=== PATIENT | female | born 1950 | race Caucasian/White ===

== ENCOUNTER 2019-09-30 08:19 | Inpatient (IN) ==
[2019-09-30] MEDS: HYDROmorphone 2 MG/ML VIAL IV PRN ×4 (09:17→19:26)
[2019-09-30] MEDS ORDERED: LACTATED RINGERS 1,000 ML IV ONE (09:19)
--- NOTE | 2019-09-30 09:38 | Emergency Department Note ---
General Adult HPI - General Chief complaint: Rib Pain Stated complaint: Right sided pain Time Seen by Provider: 09/30/19 09:15 Source: EMS Mode of arrival: EMS Limitations: no limitations - History of Present Illness HPI Narrative: This pleasant 68-year-old female comes emergency room with persisting and increasingly severe pain that has been located first on the left side of her chest and now on her right side. She has some radiation into the abdomen. Pain is sharp and stabbing in nature. She has been seen at [facility] in [place] at least 3 times and at least once in primary care, Dr. Rojo's office. Pain makes it hard to breathe. It hurts to take a deep breath. She did not have a fall. She has a history of vulvar cancer with 2 surgical removals. It is not difficult for her to swallow. She has been dr inking a lot of water and feels quite thirsty which is new. There is no pain with tightening up her abdomen. She has been on hydrocodone 5/325 1 pill 3 or 4 times per day but it has not been that helpful. She has a history of some chronic low back pain. REVIEW OF SYSTEMS: Denies fevers chills or sweats No sore throat or runny nose No palpitations No cough or shortness of breath No actual abdominal pain. Is nauseated she says from the pain but no vomiting. Has a past history of diarrhea but this is stabilized. No constipation. Has a little bit of new dysuria and frequency and urgency with now having hesitancy "almost all the time". No current new back pain No rashes Generalized weakness and lightheaded/dizzy Some chronic anxiety but no depression Feels fatigued. - Related Data Home Medications Medication Instructions Recorded Confirmed Gabapentin [Neurontin] 300 mg PO DAILY PRN 10/06/18 09/30/19 Glimepiride [Amaryl] 4 mg PO BID 10/06/18 10/06/18 LORazepam [Ativan] 0.5 mg PO TID PRN 10/06/18 10/06/18 Levothyroxine Sodium [Levoxyl] 150 mcg PO DAILY 10/06/18 10/06/18 Losartan Potassium 25 mg PO DAILY 10/06/18 10/06/18 Oxybutynin Chloride [Oxybutynin 10 mg PO DAILY 10/06/18 10/06/18 Chloride ER] Promethazine/Dextromethorphan 5 ml PO PRN PRN 10/06/18 10/06/18 [Promethazine-Dm Solution] metFORMIN HCL [Metformin HCl] 500 mg PO DAILY 10/06/18 10/06/18 Allergies Allergy/AdvReac Type Severity Reaction Status Date / Time ibuprofen [From MOTRIN] Allergy Severe ANAPHYLAXIS Verified 09/30/19 08:20 losartan Allergy Severe Other Verified 09/30/19 08:24 oxycodone [OXYCODONE] Allergy Severe STOPS Verified 09/30/19 08:20 BREATHING Past Medical History - Past Medical History [facility] Narrative: Hx of Vulvar carcinoma (s/p excision/surgery X2) Medical History (Last Updated 09/30/19 @ 09:38 by Saturnino Jarrett DO) Anemia in CKD (chronic kidney disease) (Chronic) Hypothyroidism, acquired (Chronic) Chronic renal failure, stage 3 (moderate) (Chronic) Diabetes mellitus, type 2 (Chronic) Morbid obesity (Chronic) Hyperkalemia (Resolved) Renal failure (Resolved) Medical history: Reports: arthritis, DM Surgical history ED: Reports: other (Vulvar surgery, DIONNE has ovaries) - Social History smoking status: Never smoker Alcohol use: Reports: None Drug use: Reports: none Physical Exam Limitations: no limitations General appearance: alert, grimacing (Intermittently at times.), in no apparent distress, nontoxic, other (Mild to moderate fatigued appearance.) Head: atraumatic, normocephalic Eye: Present: EOMI ENT: Present: mucous membranes dry Neck: Present: trachea midline. Absent: lymphadenopathy, thyromegaly Chest: Present: symmetric chest wall rise, other (Seems to be very tender to any palpation in the lateral right lower chest wall area.) Respiratory: Present: normal lung sounds bilaterally. Absent: respiratory distress, wheezes, stridor, accessory muscle use, prolonged expiratory phase Cardiovascular: Present: regular rate, normal rhythm. Absent: systolic murmur, diastolic murmur Abdominal: Present: soft. Absent: distention, tenderness, guarding, rebound, rigidity, organomegaly, mass Extremities: Absent: pedal edema, pretibial edema, calf tenderness Back: Absent: CVA tenderness (R), CVA tenderness (L) Neurological: Present: alert, oriented X3, CN II-XII intact Psychiatric: Present: serious, polite, pleasant. Absent: depressed, agitated, anxious, tearful, poor eye contact Skin: Present: warm, dry Course Vital Signs Temperature 98.0 F 09/30/19 08:20 Pulse Rate 90 09/30/19 08:20 Respiratory Rate 20 09/30/19 08:20 Blood Pressure 173/74 09/30/19 08:20 Pulse Oximetry (%) 98 09/30/19 08:20 Temperature 98.0 F 09/30/19 08:20 Pulse Rate 87 09/30/19 10:31 Respiratory Rate 9 L 09/30/19 10:31 Blood Pressure 177/77 09/30/19 10:31 Pulse Oximetry (%) 94 09/30/19 10:31 Medical Decision Making - MDM Narrative Medical decision making narrative: Chest pain appears to be related to metastatic lesions. Chart review of information from [facility] reveals multiple lytic lesions of the ribs. She also has a left lower lobe pneumonia and pleural effusion that is small. The abdominal CT/pelvic CT done yesterday also confirms lytic lesions and probable pathologic fractures in some of these ribs. 10:05 AM - I spoke with family, James, his son and [id number], and fill them in on circumstances. They report that patient's , Aaron, is in very poor health of his own and that he is unable to help take care of her at home and that she should not be allowed to go home. She needs a facility that will help her. [id number] suggest that they want to do everything they can to try to kill the cancer make it better. I pointed out that there may be limited options. At some point there may even be a consideration of hospice but that it is too early to consider these things. Pain control and the biopsy is needed at this point most likely. 10:40 AM - I spoke with Dr. Shukla, oncologist, [facility], and he points out that it is true that we need to get a more firm diagnosis. Multiple myeloma is still in the differential. A CT-guided biopsy is needed and pain control needed. He asked about lymph nodes. He has to have LDH, light chains, SPEP and UPEP ordered. 12:03 PM - I spoke with Dr. Caldwell, radiologist, who points out that there is a 1.1 mm lesion in the left ilium that is biopsy able and would be able to do so. 1:00 PM approximately - after speaking with nursing home social worker and hospitalist, Dr. Yoon, patient does qualify for inpatient treatment due to new metastatic disease and failed outpatient pain control. This will allow doing the biopsy, assist in pain control, and prepare for a place of rehabilitation or treatment for her longer term that is compatible with her family and social circumstances. Dr. Yoon, hospitalist, has accepted her for inpatient. - Lab Data Result diagrams: 09/30/19 09:00 09/30/19 09:00 Lab Results 09/30/19 09/30/19 09/30/19 Range/Units 09:00 09:00 09:00 WBC 10.1 (4.50-11.00) K/mcL RBC 3.14 L (3.59-5.38) M/mcL Hgb 9.8 L (11.2-15.7) g/dL Hct 29.5 L (34.1-44.9) % MCV 93.9 (80.0-100.0) fL MCH 31.2 (26.0-34.0) pg MCHC 33.2 (31.0-36.0) g/dL RDW 12.1 (11.5-14.5) % Plt Count 338 (140-440) K/mcL MPV 10.8 H (7.4-10.4) fL Gran % 85.6 H (38.0-78.0) % Lymph % (Auto) 6.1 L (15.5-49.0) % Stanton % (Auto) 8.3 (1.0-12.0) % Eos % (Auto) 0 (0.0-7.0) % Baso % (Auto) 0 (0.0-2.0) % Gran # 8.61 H (1.80-8.00) K/mcL Lymph # (Auto) 0.61 L (1.50-4.80) K/mcL Stanton # (Auto) 0.83 (0.10-0.90) K/mcL Eos # (Auto) 0 (0.00-0.70) K/mcL Baso # (Auto) 0 (0.00-0.30) K/mcL ESR 118 H (0-20) mm/hr D-Dimer 4.41 H (0.00-0.40) ug/ml Sodium 133 (133-145) mmol/L Potassium 4.2 (3.3-5.1) mmol/L Chloride 99 (96-108) mmol/L Carbon Dioxide 20 L (22-30) mmol/L Anion Gap 14.0 (8-16) BUN 27 H (8-23) mg/dl Creatinine 1.4 H (0.6-1.1) mg/dl GFR Calculation 38 Glucose 347 H (70-105) mg/dL Calcium 9.1 (8.6-10.4) mg/dl Total Bilirubin 0.2 (0.0-1.0) mg/dL AST 13 (0-37) U/l ALT 9 (0-40) U/l Alkaline Phosphatase 117 (39-117) U/L Troponin T (0-0.03) ng/ml Total Protein 7.0 (5.9-8.4) gm/dL Albumin 3.4 (3.2-5.2) gm/dL Globulin 3.6 (2.2-3.7) gm/dL Albumin/Globulin Ratio 0.9 L (1.0-2.3) 09/30/19 Range/Units 09:00 WBC (4.50-11.00) K/mcL RBC (3.59-5.38) M/mcL Hgb (11.2-15.7) g/dL Hct (34.1-44.9) % MCV (80.0-100.0) fL MCH (26.0-34.0) pg MCHC (31.0-36.0) g/dL RDW (11.5-14.5) % Plt Count (140-440) K/mcL MPV (7.4-10.4) fL Gran % (38.0-78.0) % Lymph % (Auto) (15.5-49.0) % Stanton % (Auto) (1.0-12.0) % Eos % (Auto) (0.0-7.0) % Baso % (Auto) (0.0-2.0) % Gran # (1.80-8.00) K/mcL Lymph # (Auto) (1.50-4.80) K/mcL Stanton # (Auto) (0.10-0.90) K/mcL Eos # (Auto) (0.00-0.70) K/mcL Baso # (Auto) (0.00-0.30) K/mcL ESR (0-20) mm/hr D-Dimer (0.00-0.40) ug/ml Sodium (133-145) mmol/L Potassium (3.3-5.1) mmol/L Chloride (96-108) mmol/L Carbon Dioxide (22-30) mmol/L Anion Gap (8-16) BUN (8-23) mg/dl Creatinine (0.6-1.1) mg/dl GFR Calculation Glucose (70-105) mg/dL Calcium (8.6-10.4) mg/dl Total Bilirubin (0.0-1.0) mg/dL AST (0-37) U/l ALT (0-40) U/l Alkaline Phosphatase (39-117) U/L Troponin T < 0.01 (0-0.03) ng/ml Total Protein (5.9-8.4) gm/dL Albumin (3.2-5.2) gm/dL Globulin (2.2-3.7) gm/dL Albumin/Globulin Ratio (1.0-2.3) Disposition Pt seen by PRODUCTION CONTROL COORDINATING CLERK/PA only: No Clinical Impression: Bone metastases, History of cancer of vulva, Chest wall pain, Failure of outpatient treatment Disposition: Xfer As Inpt ([facility]) Condition: Serious
[2019-09-30 09:48] LABS: ALT/SGPT 9 U/l (0-40); AST/SGOT 13 U/l (0-37); Albumin 3.4 gm/dL (3.2-5.2); Albumin/Globulin Ratio 0.9 (1.0-2.3); Alkaline Phosphatase 117 U/L (39-117); Bilirubin,Total 0.2 mg/dL (0.0-1.0); Calcium 9.1 mg/dl (8.6-10.4); Carbon Dioxide 20 mmol/L (22-30); Chloride 99 mmol/L (96-108); Globulin 3.6 gm/dL (2.2-3.7); Glomerular Filtration Rate 38; Glucose 347 mg/dL (70-105)
[2019-09-30 09:53] LABS: Blood Urea Nitrogen 27 mg/dl (8-23)
[2019-09-30] MEDS ORDERED: HYDROmorphone 2 MG/ML VIAL IV PRN (09:59)
[2019-09-30] MEDS ORDERED: ONDANSETRON 4 MG/2 ML VIAL IV ONE (09:59)
[2019-09-30 10:09] LABS: Basophils # (Auto) 0 K/mcL (0.00-0.30); Basophils % (Auto) 0 % (0.0-2.0); Eosinophils # (Auto) 0 K/mcL (0.00-0.70); Eosinophils % (Auto) 0 % (0.0-7.0); Granulocytes % (Auto) 85.6 % (38.0-78.0); Hematocrit 29.5 % (34.1-44.9); Hemoglobin 9.8 g/dL (11.2-15.7); Lymphocytes # (Auto) 0.61 K/mcL (1.50-4.80); Lymphocytes % (Auto) 6.1 % (15.5-49.0); Mean Cell Volume 93.9 fL (80.0-100.0); Mean Corpuscular HGB Conc 33.2 g/dL (31.0-36.0); Mean Platelet Volume 10.8 fL (7.4-10.4); Monocytes # (Auto) 0.83 K/mcL (0.10-0.90); Monocytes % (Auto) 8.3 % (1.0-12.0); Platelet Count 338 K/mcL (140-440); RBC 3.14 M/mcL (3.59-5.38); Red Cell Distribution Width 12.1 % (11.5-14.5); WBC 10.1 K/mcL (4.50-11.00)
[2019-09-30 10:23] LABS: Erythrocyte Sedimentation Rate 118 mm/hr (0-20)
--- NOTE | 2019-09-30 10:58 | XRay Report ---
CLINICAL INFORMATION: Right sided rib pain COMPARISON: 09/27/2019 FINDINGS: Mild cardiomegaly is unchanged. Mediastinum and pulmonary vessels are normal. Moderate patchy left basilar infiltrate and small left pleural effusion - slight worsening IMPRESSION: Moderate patchy left basilar infiltrate and small left pleural effusion - slight worsening. Mild cardiomegaly stable Interpreted and Authenticated by: Joe Caldwell 09/30/19
[2019-09-30 13:33] LABS: Total Protein PEP 6.4 gm/dL (5.9-8.4)
--- NOTE | 2019-09-30 13:36 | Internal Med History&Physical ---
Medical - H&P: HPI Patient information: Note initiated : 09/30/19 at 1:29 pm Service Date, if different from initiated Date: [] Patient: Kiana Benitez a 68 y/o F admitted on for Right Sided Pain. Chief Complaint: [] Chief complaint: Chest pain and weakness History of present illness: Ms. Benitez is a 68 year old F with a history of vulvar cancer had 2 recent excision 3 months ago and the last one 3 weeks ago. Patient started experiencing pleuritic left-sided chest pain over the last 4 weeks and has had multiple ER visits and was diagnosed with pleurisy. However her symptoms have continued to get worse making it more difficult to breathe and what was initially a 4 out of 10 is now become 5-8 out of 10 despite being on medications. There is no associated radiation but every attempt to take a deep breath, cough or move makes it worse. She was also seen at PCP office. She recently had a CT which showed multiple lytic lesions involving the ribs. A final read of the CT is currently being obtained. Patient was evaluated today in the ER initial work-up was consistent with left basilar infiltrate along with left pleural effusion which has been worsening from the prior imaging. Also pain is intractable and clearly have failed outpatient attempts at treatment. ER physician discussed case with cancer specialist Dr. Tadeo who recommended obtaining biopsy and follow-up as outpatient After initial evaluation and treatment hospitalist service was consulted for ad mission At the time of evaluation patient is fairly anxious. She is unable to talk in full sentences due to pain. She is under the effect of Dilaudid and frequently dozes off. She however was able to hold a conversation and provide review of systems. She denies recent fall. She lives with her and her son in [place]. She denies weight loss, bloody stool, vaginal bleeding, swallowing difficulty. Based on information I have at this point time I discussed the plan of admission for intensive pain management for metastatic lytic lesion along with obtaining a biopsy for further evaluation of tumor and blood work. We will initiate treatment for pneumonia seen on imaging. Review of system 10 point review system was performed and is negative except for ones discussed above Medical - H&P: PMH Medical history: Anemia in CKD (chronic kidney disease) (Chronic) Hypothyroidism, acquired (Chronic) Chronic renal failure, stage 3 (moderate) (Chronic) Diabetes mellitus, type 2 (Chronic) Morbid obesity (Chronic) Hyperkalemia (Resolved) Renal failure (Resolved) Medical history: Reports: arthritis, DM Surgical history ED: Reports: other (Vulvar surgery, DIONNE has ovaries) - Social History smoking status: Never smoker Alcohol use: Reports: None Drug use: Reports: none Medical - H&P: Meds Home Medications Medication Instructions Recorded Confirmed Type Gabapentin [Neurontin] 300 mg PO DAILY PRN 10/06/18 09/30/19 History LORazepam [Ativan] 0.5 mg PO Q6HP PRN 10/06/18 09/30/19 History Levothyroxine Sodium [Levoxyl] 175 mcg PO DAILY 10/06/18 09/30/19 History Carvedilol [Coreg] 6.25 mg PO BIDCC 09/30/19 09/30/19 History Cyanocobalamin [Vitamin B12] 1,000 mcg IM MONTHLY 09/30/19 09/30/19 History Ferrous Gluconate [Fergon] 324 mg PO DAILY 09/30/19 09/30/19 History HYDROcodone/ACETAMINOPHEN [Cougar 1 each PO QID PRN 09/30/19 09/30/19 History 10-325 Tablet] Insulin Glargine, Human [Lantus] 25 unit SQ HS 09/30/19 09/30/19 History Insulin Glargine, Human [Lantus] 30 unit SQ DAILY 09/30/19 09/30/19 History Oxybutynin Chloride 5 mg PO BID 09/30/19 09/30/19 History Zolpidem [Ambien] 5 - 10 mg PO HSP PRN 09/30/19 09/30/19 History Allergies Allergy/AdvReac Type Severity Reaction Status Date / Time ibuprofen [From MOTRIN] Allergy Severe ANAPHYLAXIS Verified 09/30/19 08:20 losartan Allergy Severe Other Verified 09/30/19 08:24 oxycodone [OXYCODONE] Allergy Severe STOPS Verified 09/30/19 08:20 BREATHING Medical - H&P: Exam - Constitutional Vitals: Temp Pulse Resp BP Pulse Ox 98.0 F 87 9 L 177/77 94 09/30/19 08:20 09/30/19 10:31 09/30/19 10:31 09/30/19 10:31 09/30/19 10:31 General appearance: severe distress (From rib pain) Exam: Alert but anxious Head normocephalic Eye movement symmetrical Oral cavity dry No ear nose discharge Neck no lymphadenopathy S1-S2 tachycardia Diminished breath sounds bases, absent breath sounds left base Abdomen soft nontender Lower extremity no cyanosis clubbing, minimal lymphedema Skin no suspicious lesion Psych anxious but cooperative Neuro nonfocal Medical - H&P: Reslt - Labs CBC & Chem 7: 10/01/19 04:53 10/01/19 04:52 Labs: Short CBC 09/30/19 Range/Units 09:00 WBC 10.1 (4.50-11.00) K/mcL Hgb 9.8 L (11.2-15.7) g/dL Hct 29.5 L (34.1-44.9) % Plt Count 338 (140-440) K/mcL BMP 09/30/19 09:00 Sodium 133 Potassium 4.2 Chloride 99 Carbon Dioxide 20 L BUN 27 H Creatinine 1.4 H Glucose 347 H Calcium 9.1 Cardiac Enzymes 09/30/19 Range/Units 09:00 Troponin T < 0.01 (0-0.03) ng/ml Liver Function 09/30/19 Range/Units 09:00 Total Bilirubin 0.2 (0.0-1.0) mg/dL AST 13 (0-37) U/l ALT 9 (0-40) U/l Alkaline Phosphatase 117 (39-117) U/L Albumin 3.4 (3.2-5.2) gm/dL Medical - H&P: A/P (1) 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 * Intractable bone pain secondary to metastatic cancer-start aggressive pain management. Consider bisphosphonate/steroids if inadequate response to narcotic/acetaminophen and local patches * Left lower lobe pneumonia-initiate antibiotic coverage. Continue aggressive pulmonary toilet * Anemia of chronic kidney disease, hemoglobin stable at 9.8 * History of hypothyroidism continue thyroxine * Morbid obesity continue dietary intervention/directed therapies. * DM type II continue prandial insulin/CC diet * History of CKD stage IIIb-monitor renal function * Neuropathy continue gabapentin * Hypertension continue losartan * Anxiety disorder on home dose lorazepam * Full code * Prophylaxis heparin Plan * Inpatient admission * Antibiotic coverage * Multimodal pain management * Arrange rib biopsy * Pre-existing medical condition management on home medications * Discharge planning likely SNF * PT OT/nutrition support
[2019-09-30] MEDS ORDERED: traMADol 50 MG TABLET PO PRN (14:32)
[2019-09-30] MEDS ORDERED: POTASSIUM CHLORIDE 20 MEQ PACKET PO PRN (14:32)
[2019-09-30] MEDS ORDERED: DEXTROSE 50% 50 ML VIAL IV PRN (14:32)
[2019-09-30] MEDS ORDERED: DEXTROSE 31 GM ORAL.SUSP PO PRN (14:32)
[2019-09-30] MEDS ORDERED: MAGNESIUM HYDROXIDE 30 ML ORAL.SUSP PO PRN (14:32)
[2019-09-30] MEDS ORDERED: ONDANSETRON 4 MG ODT TABLET SL PRN (14:32)
[2019-09-30] MEDS ORDERED: ONDANSETRON 4 MG/2 ML VIAL IV PRN (14:32)
[2019-09-30] MEDS ORDERED: MAGNESIUM SULFATE 2 GM/50 ML BAG IV PRN (14:32)
[2019-09-30] MEDS ORDERED: BISACODYL 10 MG SUPP.RECT PR PRN (14:32)
[2019-09-30] MEDS ORDERED: ACETAMINOPHEN 325 MG TABLET PO PRN (14:32)
[2019-09-30] MEDS ORDERED: ACETAMINOPHEN 650 MG/65 ML BOTTLE IV PRN (14:32)
[2019-09-30] MEDS: 0.9 % SODIUM CHLORIDE 10 ML SYRINGE IV SCH ×2 (15:14→21:30)
[2019-09-30] MEDS: 0.9 % SODIUM CHLORIDE 1,000 ML IV SCH (15:14)
[2019-09-30] MEDS: cefTRIAXone 2 GM in DEXTROSE 5% IN WATER 50 ML IV SCH (15:33)
[2019-09-30] MEDS: LEVOFLOXACIN 750 MG/150 ML BAG IV SCH (16:07)
[2019-09-30] MEDS: HYDROcodone/APAP 5/325MG TABLET PO PRN ×2 (16:09→21:19)
[2019-09-30] MEDS ORDERED: LORazepam 0.5 MG TABLET PO PRN (16:22)
[2019-09-30] MEDS ORDERED: HYDROcodone/APAP 10/325MG TABLET PO PRN (16:22)
[2019-09-30] MEDS ORDERED: GABAPENTIN 300 MG CAPSULE PO PRN (16:22)
[2019-09-30] MEDS: CARVEDILOL 6.25 MG TABLET PO SCH (16:52)
[2019-09-30] MEDS: INSULIN LISPRO 1 UNIT/0.01 ML UNIT SQ SCH ×2 (16:52→21:29)
[2019-09-30] MEDS: INSULIN GLARGINE, HUMAN 1 UNIT/0.01 ML SQ SCH (21:19)
[2019-09-30] MEDS: HEPARIN 5,000 UNIT/ML VIAL SQ SCH (21:19)
[2019-09-30] MEDS: SENNOSIDES/DOCUSATE SODIUM 1 TAB TABLET PO SCH (21:20)
[2019-09-30] MEDS: DOCUSATE SODIUM 100 MG CAPSULE PO SCH (21:20)
[2019-09-30] MEDS: OXYBUTYNIN CHLORIDE 5 MG TABLET PO SCH (21:20)
[2019-09-30] MEDS: ZOLPIDEM 5 MG TABLET PO PRN (23:45)
[2019-10-01] MEDS: HYDROmorphone 2 MG/ML VIAL IV PRN ×4 (01:17→19:14)
[2019-10-01] MEDS: 0.9 % SODIUM CHLORIDE 10 ML SYRINGE IV SCH ×3 (04:12→22:58)
[2019-10-01 06:49] LABS: Hematocrit 27.5 % (34.1-44.9); Hemoglobin 8.8 g/dL (11.2-15.7); Mean Cell Volume 95.5 fL (80.0-100.0); Mean Platelet Volume 10.7 fL (7.4-10.4); Platelet Count 337 K/mcL (140-440); RBC 2.88 M/mcL (3.59-5.38); Red Cell Distribution Width 11.9 % (11.5-14.5); WBC 9.2 K/mcL (4.50-11.00)
[2019-10-01 07:14] LABS: ALT/SGPT 8 U/l (0-40); AST/SGOT 9 U/l (0-37); Albumin 2.9 gm/dL (3.2-5.2); Albumin/Globulin Ratio 0.9 (1.0-2.3); Alkaline Phosphatase 96 U/L (39-117); Bilirubin,Direct < 0.2 mg/dL (0.0-0.3); Bilirubin,Total < 0.2 mg/dL (0.0-1.0); Blood Urea Nitrogen 24 mg/dl (8-23); Calcium 8.6 mg/dl (8.6-10.4); Carbon Dioxide 21 mmol/L (22-30); Chloride 100 mmol/L (96-108); Globulin 3.2 gm/dL (2.2-3.7); Glomerular Filtration Rate 35; Glucose 128 mg/dL (70-105); Lactate Dehydrogenase 214 U/L (94-250); Phosphorous 4.5 mg/dL (2.7-4.5); Triglycerides 111 mg/dl (<150); Uric Acid 6.6 mg/dL (2.5-8.0)
[2019-10-01] MEDS ORDERED: PAMIDRONATE 90 MG in 0.9 % SODIUM CHLORIDE 500 ML IV ONE ×2 (08:01→09:00)
[2019-10-01] MEDS ORDERED: DEXAMETHASONE 4 MG/ML VIAL IV ONE (08:02)
[2019-10-01] MEDS ORDERED: CAPSAICIN 0.025% CREAM.TOP 60GM TOPICAL PRN (08:02)
[2019-10-01] MEDS ORDERED: ZOLEDRONIC ACID/WATER 5 MG/100 ML BOTTLE IV ONE (08:04)
[2019-10-01 08:19] LABS: Band Neutrophils % 2 % (0-10); Lymphocytes % 13 % (15-49); Monocytes % (Manual) 9 % (1-12); Platelet Estimate NORMAL (NORMAL); RBC Morphology NORMAL (NORMAL); Segmented Neutrophils % 76 % (38-78)
[2019-10-01] MEDS: fentaNYL 25 MCG PATCH TOPICAL SCH (08:19)
[2019-10-01] MEDS ORDERED: sitaGLIPtin 50 MG TABLET PO SCH (09:00)
[2019-10-01] MEDS ORDERED: CYANOCOBALAMIN 1,000 MCG/ML VIAL IM SCH (09:00)
--- NOTE | 2019-10-01 09:08 | Internal Med Progress Note ---
Medical - PN: Subj Patient information: Note initiated : 10/01/19 at 9:06 am Service Date, if different from initiated Date: [] Patient: Kiana Benitez a 68 y/o F admitted on 09/30/19 for Right Sided Pain. Chief Complaint: [] Interval history: Ms. Benitez is a 68 year old F with a history of vulvar cancer had 2 recent excision 3 months ago and the last one 3 weeks ago. Patient started experiencing pleuritic left-sided chest pain over the last 4 weeks and has had multiple ER visits and was diagnosed with pleurisy. However her symptoms have continued to get worse making it more difficult to breathe and what was initially a 4 out of 10 is now become 5-8 out of 10 despite being on medications. There is no associated radiation but every attempt to take a deep breath, cough or move makes it worse. She was also seen at PCP office. She recently had a CT which showed multiple lytic lesions involving the ribs. A final read of the CT is currently being obtained. Patient was evaluated today in the ER initial work-up was consistent with left basilar infiltrate along with left pleural effusion which has been worsening from the prior imaging. Also pain is intractable and clearly have failed outpatient attempts at treatment. ER physician discussed case with cancer specialist Dr. Tadeo who recommended obtaining biopsy and follow-up as outpatient After initial evaluation and treatment hospitalist service was consulted for admission At the time of evaluation patient is fairly anxious. She is unable to talk in full sentences due to pain. She is under the effect of Dilaudid and frequently dozes off. She however was able to hold a conversation and provide review of systems. She denies recent fall. She lives with her and her son in [place]. She denies weight loss, bloody stool, vaginal bleeding, swallowing difficulty. Based on information I have at this point time I discussed the plan of admission for intensive pain management for metastatic lytic lesion along with obtaining a biopsy for further evaluation of tumor and blood work. We will initiate treatment for pneumonia seen on imaging. 09/30-patient clinically worsening with intractable pain and unable to be c omfortable. Started on fentanyl patch/capsaicin/lidocaine. Start bisphosphonate and 4 mg dexamethasone. High likelihood of hypostatic pneumonia due to significant pain related hypoventilation. Continue antibiotic coverage. Renal function stable currently creatinine 1.5. White count down to 9.2. Hemoglobin 8.8. Repeat chest imaging in 24 hours. - Constitutional Vitals: Vital Signs Temp Pulse Resp BP Pulse Ox 98.5 F 83 20 143/72 95 10/01/19 03:44 10/01/19 03:44 10/01/19 03:44 10/01/19 03:44 10/01/19 03:44 Period Temp Pulse Resp BP Sys/Medina Pulse Ox Last 24 Hr 98 F-98.8 F 80-93 9-28 112-185/57-86 92-100 Intake and Output 09/30/19 10/01/19 10/01/19 21:59 05:59 13:59 Intake Total 185 Output Total 1 2 Balance -1 183 Weight 245 lb 9.6 oz Intake & Output: Intake & Output 09/30/19 10/01/19 10/01/19 21:59 05:59 13:59 Intake Total 185 Output Total 1 2 Balance -1 183 Weight 245 lb 9.6 oz Intake: IV 65 Oral 120 Output: # of times incontinent of urine 1 2 General appearance: severe distress (From rib pain) Exam: Very anxious and in severe distress from pain Head normocephalic oral cavity dry No lymphedema Sluggish breath sounds Medical - PN: Obj Da - Labs CBC & Chem 7: 10/01/19 04:53 10/01/19 04:52 Labs: Abnormal Lab Results 10/01/19 10/01/19 09/30/19 04:53 04:52 09:00 RBC 2.88 L Hgb 8.8 L Hct 27.5 L MPV 10.7 H Gran % Lymph % (Auto) Gran # Lymph # (Auto) Lymphocytes % 13 L ESR D-Dimer Carbon Dioxide 21 L BUN 24 H Creatinine 1.5 H Glucose 128 H Lactate Dehydrogenase 260 H Albumin 2.9 L Albumin/Globulin Ratio 0.9 L 09/30/19 09/30/19 09/30/19 09:00 09:00 09:00 RBC 3.14 L Hgb 9.8 L Hct 29.5 L MPV 10.8 H Gran % 85.6 H Lymph % (Auto) 6.1 L Gran # 8.61 H Lymph # (Auto) 0.61 L Lymphocytes % ESR 118 H D-Dimer 4.41 H Carbon Dioxide 20 L BUN 27 H Creatinine 1.4 H Glucose 347 H Lactate Dehydrogenase Albumin Albumin/Globulin Ratio 0.9 L Meds: Medications Acetaminophen (Tylenol) 650 mg PO Q4-6HP PRN; Protocol PRN Reason: Per Pain Protocol/Fever > 101 Hydrocodone Bitart/Acetaminophen ([place] 5/325mg) 0 tab PO Q4HP PRN; Protocol PRN Reason: Per Pain Protocol Last Admin: 09/30/19 21:19 Dose: 2 tab Documented by: Bisacodyl (Dulcolax) 10 mg [place] Q2-3DAYS PRN PRN Reason: Constipation Calcium Carbonate/Glycine (Calcium Carbonate) 500 mg PO BID [facility] Capsaicin (Zostrix) 1 dose TOPICAL QIDP PRN PRN Reason: Muscle Pain Carvedilol (Coreg) 6.25 mg PO BIDCC [facility] Last Admin: 09/30/19 16:52 Dose: 6.25 mg Documented by: Dextrose (Dextrose 50%) 0 ml IV UD PRN PRN Reason: Hypoglycemia Diagnostic Test (Pha) (Accu-Chek) 1 each FS ACHS [facility] Last Admin: 09/30/19 21:20 Dose: 1 each Documented by: Docusate Sodium (Colace) 100 mg PO BID [facility] Last Admin: 09/30/19 21:20 Dose: 100 mg Documented by: Fentanyl (Duragesic) 25 mcg TOPICAL Q72H [facility] Last Admin: 10/01/19 08:19 Dose: 25 mcg Documented by: Folic Acid (Folic Acid) 1 mg PO DAILY [facility] Gabapentin (Neurontin) 300 mg PO DAILY PRN PRN Reason: Pain Glucose (Insta-Glucose) 15 gm PO PRN PRN PRN Reason: Hypoglycemia Heparin Sodium (Porcine) (Heparin) 5,000 unit SQ Q12 [facility] Last Admin: 09/30/19 21:19 Dose: 5,000 unit Documented by: Hydromorphone HCl (Dilaudid) 0 mg IV Q4HP PRN; Protocol PRN Reason: Per Pain Protocol Last Admin: 10/01/19 08:10 Dose: 0.5 mg Documented by: Ceftriaxone Sodium 2 gm/ (Dextrose) 50 mls @ 100 mls/hr IV DAILY [facility]; Protocol Last Admin: 09/30/19 15:33 Dose: 100 mls/hr Documented by: Sodium Chloride (Sodium Chloride 0.9%) 1,000 mls @ 50 mls/hr IV .Q20H [facility] Stop: 10/03/19 02:31 Last Admin: 09/30/19 15:14 Dose: 50 mls/hr Documented by: Acetaminophen (Ofirmev) 650 mg in 65 mls @ 130 mls/hr IV Q6HP PRN; Protocol PRN Reason: Per Pain Protocol/Fever > 101 Last Infusion: 10/01/19 03:16 Dose: Infused Documented by: Magnesium Sulfate (Magnesium Sulfate) 2 gm in 50 mls @ 50 mls/hr IV UD PRN PRN Reason: MG = or < 1.7 Levofloxacin (Levaquin) 750 mg in 150 mls @ 100 mls/hr IV Q48H [facility]; Protocol Last Admin: 09/30/19 16:07 Dose: 100 mls/hr Documented by: Pamidronate Disodium 90 mg/ (Sodium Chloride) 510 mls @ 166 mls/hr IV ONCE ONE Stop: 10/01/19 12:04 Insulin Glargine (Lantus) 25 unit SQ HS [facility] Last Admin: 09/30/19 21:19 Dose: 25 units Documented by: Insulin Glargine (Lantus) 30 unit SQ DAILY [facility] Insulin Human Lispro (Humalog) 0 unit SQ ACHS [facility]; Protocol Last Admin: 09/30/19 21:29 Dose: Not Given Documented by: Iron Carb/Multivit/Kemper/Folic Acid (Multivitamin W/Minerals) 1 tab PO DAILY [facility] Levothyroxine Sodium (Synthroid) 100 mcg PO ACB [facility] Levothyroxine Sodium (Synthroid) 75 mcg PO QAMAC [facility] Lidocaine (Lidoderm) 1 patch TOPICAL DAILY@1000 [facility] Lorazepam (Ativan) 0.5 mg PO Q6HP PRN PRN Reason: Anxiety Magnesium Hydroxide (Milk Of Magnesia) 30 ml PO HSP PRN PRN Reason: Constipation Melatonin (Melatonin 3mg Tablet) 3 mg PO HSP PRN PRN Reason: Insomnia Ondansetron HCl (Zofran Odt) 4 mg SL Q4-6HP PRN; Protocol PRN Reason: Nausea And Vomiting Ondansetron HCl (Zofran) 4 mg IV Q4-6HP PRN; Protocol PRN Reason: Nausea And Vomiting Last Admin: 10/01/19 08:19 Dose: 4 mg Documented by: Oxybutynin Chloride (Ditropan) 5 mg PO BID [facility] Last Admin: 09/30/19 21:20 Dose: 5 mg Documented by: Polyethylene Glycol (Miralax) 17 gm PO DAILYP PRN PRN Reason: Constipation Potassium Chloride (Klor-Con) 40 meq PO DAILYP PRN PRN Reason: K+ < 3.5 Senna/Docusate Sodium (Senna Plus Tablet) 1 tab PO HS [facility] Last Admin: 09/30/19 21:20 Dose: 1 tab Documented by: Sitagliptin Phosphate (Januvia) 50 mg PO DAILY [facility] Sodium Chloride (Saline Flush) 10 ml IV Q8 [facility] Last Admin: 10/01/19 04:12 Dose: Not Given Documented by: Thiamine HCl (Vitamin B1) 100 mg PO DAILY [facility] Tramadol HCl (Ultram) 50 mg PO Q4-6HP PRN; Protocol PRN Reason: Per Pain Protocol Zolpidem Tartrate (Ambien) 5 mg PO HSP PRN PRN Reason: Insomnia Last Admin: 09/30/19 23:45 Dose: 5 mg Documented by: Medical - PN: A/P - Time Spent With Patient Total time spent is greater than 50% in coordination of care (as documented) at patient's floor/unit and/or counseling patient: 25 - 35 minutes (1) 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 * Intractable bone pain secondary to metastatic cancer-failed to respond to conventional narcotics. Start dexamethasone/bisphosphonate and continue local measures including capsaicin/lidocaine * Left lower lobe pneumonia-continue antibiotic coverage/aggressive pulmonary toilet * Anemia of chronic kidney disease, hemoglobin 8.8 * History of hypothyroidism continue thyroxine * Morbid obesity continue dietary intervention/directed therapies. * DM type II continue prandial insulin/CC diet * History of CKD stage IIIb-creatinine 1.5. * Neuropathy continue gabapentin * Hypertension continue losartan * Anxiety disorder on home dose lorazepam * Full code * Prophylaxis heparin Plan * Continue multimodal pain management * Antibiotic coverage * Await CT-guided biopsy * Pre-existing medical condition management on home medications * Discharge planning likely SNF in 48 hours with outpatient follow-up with oncology post biopsy * Continue PT OT/nutrition support Current Visit: Yes Medical - PN: Qual - VTE Deep Vein Thrombosis/Pulmonary Embolism Present on Admission: No
[2019-10-01] MEDS: cefTRIAXone 2 GM in DEXTROSE 5% IN WATER 50 ML IV SCH (10:21)
[2019-10-01] MEDS: CARVEDILOL 6.25 MG TABLET PO SCH ×2 (10:30→17:41)
[2019-10-01] MEDS: THIAMINE 100 MG TABLET PO SCH (10:31)
[2019-10-01] MEDS: MULTIVIT,THER IRON,CA,FA & MIN 1 TABLET PO SCH (10:31)
[2019-10-01] MEDS: FOLIC ACID 1 MG TABLET PO SCH (10:32)
[2019-10-01] MEDS: DOCUSATE SODIUM 100 MG CAPSULE PO SCH ×2 (10:32→21:03)
[2019-10-01] MEDS: LEVOTHYROXINE 75 MCG TABLET PO SCH (10:36)
[2019-10-01] MEDS: OXYBUTYNIN CHLORIDE 5 MG TABLET PO SCH ×2 (10:37→21:03)
[2019-10-01] MEDS: INSULIN LISPRO 1 UNIT/0.01 ML UNIT SQ SCH ×2 (10:37→13:16)
[2019-10-01] MEDS: LEVOTHYROXINE 100 MCG TABLET PO SCH (10:37)
[2019-10-01] MEDS: HEPARIN 5,000 UNIT/ML VIAL SQ SCH ×2 (10:40→21:03)
[2019-10-01] MEDS: INSULIN GLARGINE, HUMAN 1 UNIT/0.01 ML SQ SCH ×2 (11:22→21:03)
[2019-10-01] MEDS: CALCIUM CARBONATE 1,250 MG/5 ML ORAL.SUSP PO SCH ×2 (13:04→21:03)
[2019-10-01] MEDS: LIDOCAINE PATCH TOPICAL SCH (13:05)
[2019-10-01] MEDS: HYDROcodone/APAP 5/325MG TABLET PO PRN ×2 (13:11→19:15)
[2019-10-01] MEDS: 0.9 % SODIUM CHLORIDE 1,000 ML IV SCH (17:43)
[2019-10-01] MEDS: ZOLPIDEM 5 MG TABLET PO PRN (21:03)
[2019-10-01] MEDS: SENNOSIDES/DOCUSATE SODIUM 1 TAB TABLET PO SCH (21:03)
[2019-10-01] MEDS: MELATONIN 3 MG TABLET PO PRN (21:03)
[2019-10-02] MEDS: HYDROcodone/APAP 5/325MG TABLET PO PRN ×4 (03:47→21:33)
[2019-10-02] MEDS: HYDROmorphone 2 MG/ML VIAL IV PRN (03:47)
[2019-10-02] MEDS: 0.9 % SODIUM CHLORIDE 10 ML SYRINGE IV SCH ×3 (04:05→21:34)
[2019-10-02 06:29] LABS: Hematocrit 27.4 % (34.1-44.9); Hemoglobin 8.9 g/dL (11.2-15.7); Mean Cell Volume 95.8 fL (80.0-100.0); Mean Corpuscular HGB Conc 32.5 g/dL (31.0-36.0); Mean Platelet Volume 10.8 fL (7.4-10.4); Platelet Count 366 K/mcL (140-440); RBC 2.86 M/mcL (3.59-5.38); WBC 10.1 K/mcL (4.50-11.00)
[2019-10-02 07:07] LABS: ALT/SGPT 7 U/l (0-40); AST/SGOT 8 U/l (0-37); Albumin 2.7 gm/dL (3.2-5.2); Albumin/Globulin Ratio 0.8 (1.0-2.3); Alkaline Phosphatase 93 U/L (39-117); Bilirubin,Direct < 0.2 mg/dL (0.0-0.3); Bilirubin,Total < 0.2 mg/dL (0.0-1.0); Blood Urea Nitrogen 23 mg/dl (8-23); Calcium 8.5 mg/dl (8.6-10.4); Carbon Dioxide 20 mmol/L (22-30); Chloride 100 mmol/L (96-108); Globulin 3.4 gm/dL (2.2-3.7); Glomerular Filtration Rate 35; Glucose 207 mg/dL (70-105); Lactate Dehydrogenase 194 U/L (94-250); Phosphorous 4.6 mg/dL (2.7-4.5); Triglycerides 126 mg/dl (<150); Uric Acid 6.7 mg/dL (2.5-8.0)
[2019-10-02] MEDS: CARVEDILOL 6.25 MG TABLET PO SCH ×2 (08:06→17:38)
[2019-10-02] MEDS: DOCUSATE SODIUM 100 MG CAPSULE PO SCH ×2 (08:06→21:33)
[2019-10-02] MEDS: OXYBUTYNIN CHLORIDE 5 MG TABLET PO SCH ×2 (08:07→21:33)
[2019-10-02] MEDS: LEVOTHYROXINE 100 MCG TABLET PO SCH (08:07)
[2019-10-02] MEDS: LEVOTHYROXINE 75 MCG TABLET PO SCH (08:07)
[2019-10-02] MEDS: HEPARIN 5,000 UNIT/ML VIAL SQ SCH ×2 (08:09→21:32)
[2019-10-02] MEDS: CALCIUM CARBONATE 1,250 MG/5 ML ORAL.SUSP PO SCH ×2 (08:09→21:32)
[2019-10-02] MEDS: INSULIN GLARGINE, HUMAN 1 UNIT/0.01 ML SQ SCH ×2 (08:10→21:34)
[2019-10-02] MEDS: cefTRIAXone 2 GM in DEXTROSE 5% IN WATER 50 ML IV SCH (08:10)
[2019-10-02 08:54] LABS: Band Neutrophils % 3 % (0-10); Lymphocytes % 9 % (15-49); Monocytes % (Manual) 8 % (1-12); Platelet Estimate NORMAL (NORMAL); RBC Morphology NORMAL (NORMAL); Segmented Neutrophils % 80 % (38-78)
--- NOTE | 2019-10-02 09:21 | Internal Med Progress Note ---
Medical - PN: Subj Patient information: Note initiated : 10/02/19 at 9:18 am Service Date, if different from initiated Date: [] Patient: Kiana Benitez a 68 y/o F admitted on 09/30/19 for Right Sided Pain. Chief Complaint: [] Interval history: Ms. Benitez is a 68 year old F with a history of vulvar cancer had 2 recent excision 3 months ago and the last one 3 weeks ago. Patient started experiencing pleuritic left-sided chest pain over the last 4 weeks and has had multiple ER visits and was diagnosed with pleurisy. However her symptoms have continued to get worse making it more difficult to breathe and what was initially a 4 out of 10 is now become 5-8 out of 10 despite being on medications. There is no associated radiation but every attempt to take a deep breath, cough or move makes it worse. She was also seen at PCP office. She recently had a CT which showed multiple lytic lesions involving the ribs. A final read of the CT is currently being obtained. Patient was evaluated today in the ER initial work-up was consistent with left basilar infiltrate along with left pleural effusion which has been worsening from the prior imaging. Also pain is intractable and clearly have failed outpatient attempts at treatment. ER physician discussed case with cancer specialist Dr. Tadeo who recommended obtaining biopsy and follow-up as outpatient After initial evaluation and treatment hospitalist service was consulted for admission At the time of evaluation patient is fairly anxious. She is unable to talk in full sentences due to pain. She is under the effect of Dilaudid and frequently dozes off. She however was able to hold a conversation and provide review of systems. She denies recent fall. She lives with her and her son in [place]. She denies weight loss, bloody stool, vaginal bleeding, swallowing difficulty. Based on information I have at this point time I discussed the plan of admission for intensive pain management for metastatic lytic lesion along with obtaining a biopsy for further evaluation of tumor and blood work. We will initiate treatment for pneumonia seen on imaging. 09/30-patient clinically worsening with intractable pain and unable to be c omfortable. Started on fentanyl patch/capsaicin/lidocaine. Start bisphosphonate and 4 mg dexamethasone. High likelihood of hypostatic pneumonia due to significant pain related hypoventilation. Continue antibiotic coverage. Renal function stable currently creatinine 1.5. White count down to 9.2. Hemoglobin 8.8. Repeat chest imaging in 24 hours. 10/01-patient much improved post bisphosphonate/dexamethasone and lidocaine patches. Able to talk in full sentences. Pain 4 out of 10. Creatinine 1.5. T-max 98.2. No other concerns expressed by nursing staff. Tolerating diet. Continue physical therapies. Anticipate discharge following biopsy in 48 hours. - Constitutional Vitals: Vital Signs Temp Pulse Resp BP Pulse Ox 98.2 F 89 20 153/87 95 10/02/19 03:48 10/02/19 03:48 10/02/19 03:48 10/02/19 03:48 10/02/19 03:48 Period Temp Pulse Resp BP Sys/Medina Pulse Ox Last 24 Hr 97.9 F-98.4 F 87-92 16-20 118-165/66-87 92-95 Intake and Output 10/01/19 10/02/19 10/02/19 21:59 05:59 13:59 Intake Total 400 340 Output Total 350 150 Balance 50 190 Weight 249 lb 3.2 oz Intake & Output: Intake & Output 10/01/19 10/02/19 10/02/19 21:59 05:59 13:59 Intake Total 400 340 Output Total 350 150 Balance 50 190 Weight 249 lb 3.2 oz Intake: Oral 400 340 Output: Void Amount 350 150 Other: Meal Dinner Percent of Meal Consumed 40 Feeding Ability Independent Urine Appearance Clear Clear Urine Color Bright Yellow Dark Yellow Urine Odor Normal Strong General appearance: no acute distress Exam: Alert nonlabored breathing No anxiety Sitting on chair Nondistended abdomen Medical - PN: Obj Da - Labs CBC & Chem 7: 10/02/19 04:54 10/02/19 04:54 Labs: Abnormal Lab Results 10/02/19 10/02/19 10/01/19 04:54 04:54 04:53 RBC 2.86 L 2.88 L Hgb 8.9 L 8.8 L Hct 27.4 L 27.5 L MPV 10.8 H 10.7 H Gran % Lymph % (Auto) Gran # Lymph # (Auto) Seg Neutrophils % 80 H Lymphocytes % 9 L 13 L ESR D-Dimer Carbon Dioxide 20 L BUN Creatinine 1.5 H Glucose 207 H Calcium 8.5 L Phosphorus 4.6 H Lactate Dehydrogenase Albumin 2.7 L Albumin/Globulin Ratio 0.8 L 10/01/19 09/30/19 09/30/19 04:52 09:00 09:00 RBC Hgb Hct MPV Gran % Lymph % (Auto) Gran # Lymph # (Auto) Seg Neutrophils % Lymphocytes % ESR D-Dimer 4.41 H Carbon Dioxide 21 L BUN 24 H Creatinine 1.5 H Glucose 128 H Calcium Phosphorus Lactate Dehydrogenase 260 H Albumin 2.9 L Albumin/Globulin Ratio 0.9 L 09/30/19 09/30/19 09:00 09:00 RBC 3.14 L Hgb 9.8 L Hct 29.5 L MPV 10.8 H Gran % 85.6 H Lymph % (Auto) 6.1 L Gran # 8.61 H Lymph # (Auto) 0.61 L Seg Neutrophils % Lymphocytes % ESR 118 H D-Dimer Carbon Dioxide 20 L BUN 27 H Creatinine 1.4 H Glucose 347 H Calcium Phosphorus Lactate Dehydrogenase Albumin Albumin/Globulin Ratio 0.9 L Meds: Medications Acetaminophen (Tylenol) 650 mg PO Q4-6HP PRN; Protocol PRN Reason: Per Pain Protocol/Fever > 101 Hydrocodone Bitart/Acetaminophen ([place] 5/325mg) 0 tab PO Q4HP PRN; Protocol PRN Reason: Per Pain Protocol Last Admin: 10/02/19 08:07 Dose: 2 tab Documented by: Bisacodyl (Dulcolax) 10 mg [place] Q2-3DAYS PRN PRN Reason: Constipation Calcium Carbonate/Glycine (Calcium Carbonate) 500 mg PO BID [facility] Last Admin: 10/02/19 08:09 Dose: 500 mg Documented by: Capsaicin (Zostrix) 1 dose TOPICAL QIDP PRN PRN Reason: Muscle Pain Last Admin: 10/01/19 13:16 Dose: 1 dose Documented by: Carvedilol (Coreg) 6.25 mg PO BIDCC [facility] Last Admin: 10/02/19 08:06 Dose: 6.25 mg Documented by: Dextrose (Dextrose 50%) 0 ml IV UD PRN PRN Reason: Hypoglycemia Diagnostic Test (Pha) (Accu-Chek) 1 each FS ACHS [facility] Last Admin: 10/02/19 08:06 Dose: 1 each Documented by: Docusate Sodium (Colace) 100 mg PO BID [facility] Last Admin: 10/02/19 08:06 Dose: 100 mg Documented by: Fentanyl (Duragesic) 25 mcg TOPICAL Q72H [facility] Last Admin: 10/01/19 08:19 Dose: 25 mcg Documented by: Folic Acid (Folic Acid) 1 mg PO DAILY [facility] Last Admin: 10/01/19 10:32 Dose: Not Given Documented by: Gabapentin (Neurontin) 300 mg PO DAILY PRN PRN Reason: Pain Last Admin: 10/01/19 13:14 Dose: 300 mg Documented by: Glucose (Insta-Glucose) 15 gm PO PRN PRN PRN Reason: Hypoglycemia Heparin Sodium (Porcine) (Heparin) 5,000 unit SQ Q12 [facility] Last Admin: 10/02/19 08:09 Dose: 5,000 unit Documented by: Hydromorphone HCl (Dilaudid) 0 mg IV Q4HP PRN; Protocol PRN Reason: Per Pain Protocol Last Admin: 10/02/19 03:47 Dose: 0.5 mg Documented by: Ceftriaxone Sodium 2 gm/ (Dextrose) 50 mls @ 100 mls/hr IV DAILY [facility]; Protocol Last Admin: 10/02/19 08:10 Dose: 100 mls/hr Documented by: Sodium Chloride (Sodium Chloride 0.9%) 1,000 mls @ 50 mls/hr IV .Q20H [facility] Stop: 10/03/19 02:31 Last Admin: 10/01/19 17:43 Dose: 50 mls/hr Documented by: Acetaminophen (Ofirmev) 650 mg in 65 mls @ 130 mls/hr IV Q6HP PRN; Protocol PRN Reason: Per Pain Protocol/Fever > 101 Last Infusion: 10/01/19 03:16 Dose: Infused Documented by: Magnesium Sulfate (Magnesium Sulfate) 2 gm in 50 mls @ 50 mls/hr IV UD PRN PRN Reason: MG = or < 1.7 Levofloxacin (Levaquin) 750 mg in 150 mls @ 100 mls/hr IV Q48H [facility]; Protocol Last Admin: 09/30/19 16:07 Dose: 100 mls/hr Documented by: Insulin Glargine (Lantus) 25 unit SQ HS [facility] Last Admin: 10/01/19 21:03 Dose: 25 units Documented by: Insulin Glargine (Lantus) 30 unit SQ DAILY [facility] Last Admin: 10/02/19 08:10 Dose: 30 unit Documented by: Iron Carb/Multivit/Treutlen/Folic Acid (Multivitamin W/Minerals) 1 tab PO DAILY [facility] Last Admin: 10/01/19 10:31 Dose: Not Given Documented by: Levothyroxine Sodium (Synthroid) 100 mcg PO ACB [facility] Last Admin: 10/02/19 08:07 Dose: 100 mcg Documented by: Levothyroxine Sodium (Synthroid) 75 mcg PO QAMAC [facility] Last Admin: 10/02/19 08:07 Dose: 75 mcg Documented by: Lidocaine (Lidoderm) 1 patch TOPICAL DAILY@1000 [facility] Last Admin: 10/01/19 13:05 Dose: 1 patch Documented by: Lorazepam (Ativan) 0.5 mg PO Q6HP PRN PRN Reason: Anxiety Magnesium Hydroxide (Milk Of Magnesia) 30 ml PO HSP PRN PRN Reason: Constipation Melatonin (Melatonin 3mg Tablet) 3 mg PO HSP PRN PRN Reason: Insomnia Last Admin: 10/01/19 21:03 Dose: 3 mg Documented by: Ondansetron HCl (Zofran Odt) 4 mg SL Q4-6HP PRN; Protocol PRN Reason: Nausea And Vomiting Ondansetron HCl (Zofran) 4 mg IV Q4-6HP PRN; Protocol PRN Reason: Nausea And Vomiting Last Admin: 10/01/19 08:19 Dose: 4 mg Documented by: Oxybutynin Chloride (Ditropan) 5 mg PO BID [facility] Last Admin: 10/02/19 08:07 Dose: 5 mg Documented by: Polyethylene Glycol (Miralax) 17 gm PO DAILYP PRN PRN Reason: Constipation Potassium Chloride (Klor-Con) 40 meq PO DAILYP PRN PRN Reason: K+ < 3.5 Senna/Docusate Sodium (Senna Plus Tablet) 1 tab PO HS [facility] Last Admin: 10/01/19 21:03 Dose: 1 tab Documented by: Sodium Chloride (Saline Flush) 10 ml IV Q8 [facility] Last Admin: 10/02/19 04:05 Dose: Not Given Documented by: Thiamine HCl (Vitamin B1) 100 mg PO DAILY [facility] [place] Last Admin: 10/01/19 10:31 Dose: Not Given Documented by: Tramadol HCl (Ultram) 50 mg PO Q4-6HP PRN; Protocol PRN Reason: Per Pain Protocol Zolpidem Tartrate (Ambien) 5 mg PO HSP PRN PRN Reason: Insomnia Last Admin: 10/01/19 21:03 Dose: 5 mg Documented by: Medical - PN: A/P - Time Spent With Patient Total time spent is greater than 50% in coordination of care (as documented) at patient's floor/unit and/or counseling patient: 25 - 35 minutes (1) 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 * Intractable bone pain secondary to metastatic cancer-responded well to dexamethasone/bisphosphonate/capsaicin and local lidocaine. Continue opioids as tolerated. * Left lower lobe pneumonia-clinically improved on antibiotic coverage/aggressive pulmonary toilet * Anemia of chronic kidney disease, hemoglobin 8.9 * History of hypothyroidism continue thyroxine * Morbid obesity continue dietary intervention/directed therapies. * DM type II continue prandial insulin/CC diet * History of CKD stage IIIb-creatinine 1.5. * Neuropathy continue gabapentin * Hypertension continue losartan * Anxiety disorder on home dose lorazepam * Full code * Prophylaxis heparin Plan * Continue pain management * Continue antibiotic coverage * Await CT-guided biopsy * Pre-existing medical condition management on home medications * Discharge planning likely SNF in 48 hours with outpatient follow-up with [facility] post biopsy * Continue PT OT/nutrition support Current Visit: Yes Medical - PN: Qual - VTE Deep Vein Thrombosis/Pulmonary Embolism Present on Admission: No
[2019-10-02] MEDS: MULTIVIT,THER IRON,CA,FA & MIN 1 TABLET PO SCH (11:32)
[2019-10-02] MEDS: FOLIC ACID 1 MG TABLET PO SCH (11:32)
[2019-10-02] MEDS: THIAMINE 100 MG TABLET PO SCH (11:33)
[2019-10-02] MEDS: LIDOCAINE PATCH TOPICAL SCH (13:57)
[2019-10-02] MEDS: 0.9 % SODIUM CHLORIDE 1,000 ML IV SCH (14:04)
[2019-10-02] MEDS: LEVOFLOXACIN 750 MG/150 ML BAG IV SCH (16:27)
[2019-10-02] MEDS: POLYETHYLENE GLYCOL 3350 17 GM PACKET PO PRN (21:32)
[2019-10-02] MEDS: ZOLPIDEM 5 MG TABLET PO PRN (21:33)
[2019-10-02] MEDS: SENNOSIDES/DOCUSATE SODIUM 1 TAB TABLET PO SCH (21:33)
[2019-10-02] MEDS: MELATONIN 3 MG TABLET PO PRN (21:33)
[2019-10-03] MEDS: HYDROcodone/APAP 5/325MG TABLET PO PRN ×4 (01:26→18:40)
[2019-10-03] MEDS: 0.9 % SODIUM CHLORIDE 10 ML SYRINGE IV SCH ×3 (04:25→21:53)
[2019-10-03 06:35] LABS: Hematocrit 25.9 % (34.1-44.9); Hemoglobin 8.4 g/dL (11.2-15.7); Mean Corpuscular HGB Conc 32.4 g/dL (31.0-36.0); Mean Platelet Volume 10.7 fL (7.4-10.4); Platelet Count 351 K/mcL (140-440); RBC 2.67 M/mcL (3.59-5.38); WBC 7.6 K/mcL (4.50-11.00)
[2019-10-03 06:58] LABS: ALT/SGPT 6 U/l (0-40); AST/SGOT 9 U/l (0-37); Albumin 2.7 gm/dL (3.2-5.2); Albumin/Globulin Ratio 0.8 (1.0-2.3); Alkaline Phosphatase 89 U/L (39-117); Bilirubin,Direct < 0.2 mg/dL (0.0-0.3); Bilirubin,Total < 0.2 mg/dL (0.0-1.0); Blood Urea Nitrogen 22 mg/dl (8-23); Calcium 8.7 mg/dl (8.6-10.4); Carbon Dioxide 22 mmol/L (22-30); Chloride 102 mmol/L (96-108); Globulin 3.3 gm/dL (2.2-3.7); Glomerular Filtration Rate 38; Glucose 127 mg/dL (70-105); Lactate Dehydrogenase 198 U/L (94-250); Phosphorous 3.8 mg/dL (2.7-4.5); Triglycerides 152 mg/dl (<150); Uric Acid 6.7 mg/dL (2.5-8.0)
[2019-10-03 07:30] LABS: Band Neutrophils % 3 % (0-10); Lymphocytes % 14 % (15-49); Monocytes % (Manual) 14 % (1-12); Myelocytes % 1 % (0-0); Platelet Estimate NORMAL (NORMAL); RBC Morphology NORMAL (NORMAL); Segmented Neutrophils % 68 % (38-78)
[2019-10-03 08:41] LABS: Kappa Free Light Chains 52.16 mg/L (3.30-19.40); Lambda Free Light Chains 27.09 mg/L (5.71-26.30)
[2019-10-03] MEDS: OXYBUTYNIN CHLORIDE 5 MG TABLET PO SCH ×2 (09:08→21:48)
[2019-10-03] MEDS: LEVOTHYROXINE 75 MCG TABLET PO SCH (09:09)
[2019-10-03] MEDS: LEVOTHYROXINE 100 MCG TABLET PO SCH (09:09)
[2019-10-03] MEDS: CARVEDILOL 6.25 MG TABLET PO SCH ×2 (09:09→17:13)
[2019-10-03] MEDS: DOCUSATE SODIUM 100 MG CAPSULE PO SCH ×2 (09:16→21:48)
[2019-10-03] MEDS: FOLIC ACID 1 MG TABLET PO SCH (09:17)
[2019-10-03] MEDS: MULTIVIT,THER IRON,CA,FA & MIN 1 TABLET PO SCH (09:17)
[2019-10-03] MEDS: HEPARIN 5,000 UNIT/ML VIAL SQ SCH ×2 (09:17→21:48)
[2019-10-03] MEDS: THIAMINE 100 MG TABLET PO SCH (09:18)
[2019-10-03] MEDS: cefTRIAXone 2 GM in DEXTROSE 5% IN WATER 50 ML IV SCH (09:22)
[2019-10-03] MEDS: CALCIUM CARBONATE 1,250 MG/5 ML ORAL.SUSP PO SCH ×2 (09:26→21:47)
[2019-10-03 09:59] LABS: Prothrombin Time 13.3 sec (11.9-14.5)
--- NOTE | 2019-10-03 12:09 | Internal Med Progress Note ---
Medical - PN: Subj Patient information: Note initiated : 10/03/19 at 12:06 pm Service Date, if different from initiated Date: [] Patient: Kiana Benitez a 68 y/o F admitted on 09/30/19 for Right Sided Pain. Chief Complaint: [] Interval history: Ms. Benitez is a 68 year old F with a history of vulvar cancer had 2 recent excision 3 months ago and the last one 3 weeks ago. Patient started experiencing pleuritic left-sided chest pain over the last 4 weeks and has had multiple ER visits and was diagnosed with pleurisy. However her symptoms have continued to get worse making it more difficult to breathe and what was initially a 4 out of 10 is now become 5-8 out of 10 despite being on medications. There is no associated radiation but every attempt to take a deep breath, cough or move makes it worse. She was also seen at PCP office. She recently had a CT which showed multiple lytic lesions involving the ribs. A final read of the CT is currently being obtained. Patient was evaluated today in the ER initial work-up was consistent with left basilar infiltrate along with left pleural effusion which has been worsening from the prior imaging. Also pain is intractable and clearly have failed outpat ient attempts at treatment. ER physician discussed case with cancer specialist Dr. Tadeo who recommended obtaining biopsy and follow-up as outpatient After initial evaluation and treatment hospitalist service was consulted for admission At the time of evaluation patient is fairly anxious. She is unable to talk in full sentences due to pain. She is under the effect of Dilaudid and frequently dozes off. She however was able to hold a conversation and provide review of systems. She denies recent fall. She lives with her and her son in [place]. She denies weight loss, bloody stool, vaginal bleeding, swallowing difficulty. Based on information I have at this point time I discussed the plan of admission for intensive pain management for metastatic lytic lesion along with obtaining a biopsy for further evaluation of tumor and blood work. We will initiate treatment for pneumonia seen on imaging. 09/30-patient clinically worsening with intractable pain and unable to be comfortable. Started on fentanyl patch/capsaicin/lidocaine. Start bisphosphonate and 4 mg dexamethasone. High likelihood of hypostatic pneumonia due to significant pain related hypoventilation. Continue antibiotic coverage. Renal function stable currently creatinine 1.5. White count down to 9.2. Hemoglobin 8.8. Repeat chest imaging in 24 hours. 10/01-patient much improved post bisphosphonate/dexamethasone and lidocaine patches. Able to talk in full sentences. Pain 4 out of 10. Creatinine 1.5. T-max 98.2. No other concerns expressed by nursing staff. Tolerating diet. Continue physical therapies. Anticipate discharge following biopsy in 48 hours. 10/02-patient due for bone biopsy at 1 PM. Pain much improved. White count 7.6, hemoglobin 8.4 creatinine 1.4, pro electrophoresis increased kappa lambda chain with increased ESR/high normal calcium suspicious for paraproteinemia. Continue PT OT. Anticipate discharge in 24 hours with outpatient oncology follow-up. - Constitutional Vitals: Vital Signs Temp Pulse Resp BP Pulse Ox 99.5 F H 85 18 139/68 93 10/03/19 08:00 10/03/19 08:00 10/03/19 08:00 10/03/19 08:00 10/03/19 08:00 Period Temp Pulse Resp BP Sys/[place] Pulse Ox Last 24 Hr 98.3 F-99.5 F 80-85 16-20 135-141/65-73 93-98 Intake and Output 10/02/19 10/03/19 10/03/19 21:59 05:59 13:59 Intake Total 740 Output Total 800 300 675 Balance -800 440 -675 Weight 254 lb 1.6 oz Intake & Output: Intake & Output 10/02/19 10/03/19 10/03/19 21:59 05:59 13:59 Intake Total 740 Output Total 800 300 675 Balance -800 440 -675 Weight 254 lb 1.6 oz Intake: Oral 740 Output: Void Amount 800 300 675 Other: Urine Appearance Clear Clear Urine Color Dark Yellow Bright Yellow Urine Odor Normal Strong General appearance: no acute distress Exam: Alert Improved rib pain Nonlabored breathing No anxiety Nondistended abdomen Medical - PN: Obj Da - Labs CBC & Chem 7: 10/03/19 05:04 10/03/19 05:04 Labs: Abnormal Lab Results 10/03/19 10/03/19 10/02/19 05:04 05:04 04:54 RBC 2.67 L Hgb 8.4 L Hct 25.9 L MPV 10.7 H Seg Neutrophils % Lymphocytes % 14 L Monocytes % (Manual) 14 H Myelocytes % 1 H Carbon Dioxide 20 L BUN Creatinine 1.4 H 1.5 H Glucose 127 H 207 H Calcium 8.5 L Phosphorus 4.6 H Lactate Dehydrogenase Albumin 2.7 L 2.7 L Albumin/Globulin Ratio 0.8 L 0.8 L Triglycerides [address] [place] LC, Quant Free Lambda LC, Quant Free [place]/Lambda Ratio 10/02/19 10/01/19 10/01/19 04:54 04:53 04:52 RBC 2.86 L 2.88 L Hgb 8.9 L 8.8 L Hct 27.4 L 27.5 L MPV 10.8 H 10.7 H Seg Neutrophils % 80 H Lymphocytes % 9 L 13 L Monocytes % (Manual) Myelocytes % Carbon Dioxide 21 L BUN 24 H Creatinine 1.5 H Glucose 128 H Calcium Phosphorus Lactate Dehydrogenase Albumin 2.9 L Albumin/Globulin Ratio 0.[address] [place] LC, Quant Free Lambda LC, Quant Free [place]/Lambda Ratio 09/30/19 09/30/19 09:00 09:00 RBC Hgb Hct MPV Seg Neutrophils % Lymphocytes % Monocytes % (Manual) Myelocytes % Carbon Dioxide BUN Creatinine Glucose Calcium Phosphorus Lactate Dehydrogenase 260 H Albumin Albumin/Globulin Ratio Triglycerides Free [place] LC, Quant 52.16 H Free Lambda LC, Quant 27.[address] [place]/Lambda Ratio 1.925 H Meds: Medications Acetaminophen (Tylenol) 650 mg PO Q4-6HP PRN; Protocol PRN Reason: Per Pain Protocol/Fever > 101 Hydrocodone Bitart/Acetaminophen ([place] 5/325mg) 0 tab PO Q4HP PRN; Protocol PRN Reason: Per Pain Protocol Last Admin: 10/03/19 09:09 Dose: 2 tab Documented by: Bisacodyl (Dulcolax) 10 mg OK Q2-3DAYS PRN PRN Reason: Constipation Calcium Carbonate/Glycine (Calcium Carbonate) 500 mg PO BID [facility] Last Admin: 10/03/19 09:26 Dose: Not Given Documented by: Capsaicin (Zostrix) 1 dose TOPICAL QIDP PRN PRN Reason: Muscle Pain Last Admin: 10/01/19 13:16 Dose: 1 dose Documented by: [facility] Last Admin: 10/03/19 09:09 Dose: 6.25 mg Documented by: Dextrose (Dextrose 50%) 0 ml IV UD PRN PRN Reason: Hypoglycemia Diagnostic Test (Pha) (Accu-Chek) 1 each FS ACHS [facility] Last Admin: 10/03/19 09:16 Dose: 1 each Documented by: Docusate Sodium (Colace) 100 mg PO BID [facility] Last Admin: 10/03/19 09:16 Dose: Not Given Documented by: Fentanyl (Duragesic) 25 mcg TOPICAL Q72H [facility] Last Admin: 10/01/19 08:19 Dose: 25 mcg Documented by: Folic Acid (Folic Acid) 1 mg PO DAILY [facility] Last Admin: 10/03/19 09:17 Dose: Not Given Documented by: Gabapentin (Neurontin) 300 mg PO DAILY PRN PRN Reason: Pain Last Admin: 10/01/19 13:14 Dose: 300 mg Documented by: Glucose (Insta-Glucose) 15 gm PO PRN PRN PRN Reason: Hypoglycemia Heparin Sodium (Porcine) (Heparin) 5,000 unit SQ Q12 [facility] Last Admin: 10/03/19 09:17 Dose: Not Given Documented by: Hydromorphone HCl (Dilaudid) 0 mg IV Q4HP PRN; Protocol PRN Reason: Per Pain Protocol Last Admin: 10/02/19 03:47 Dose: 0.5 mg Documented by: Ceftriaxone Sodium 2 gm/ (Dextrose) 50 mls @ 100 mls/hr IV DAILY [facility]; Protocol Last Admin: 10/03/19 09:22 Dose: 100 mls/hr Documented by: Acetaminophen (Ofirmev) 650 mg in 65 mls @ 130 mls/hr IV Q6HP PRN; Protocol PRN Reason: Per Pain Protocol/Fever > 101 Last Infusion: 10/01/19 03:16 Dose: Infused Documented by: Magnesium Sulfate (Magnesium Sulfate) 2 gm in 50 mls @ 50 mls/hr IV UD PRN PRN Reason: MG = or < 1.7 Levofloxacin (Levaquin) 750 mg in 150 mls @ 100 mls/hr IV Q48H [facility]; Protocol Last Admin: 10/02/19 16:27 Dose: 100 mls/hr Documented by: Insulin Glargine (Lantus) 25 unit SQ HS [facility] Last Admin: 10/02/19 21:34 Dose: 25 units Documented by: Insulin Glargine (Lantus) 30 unit SQ DAILY [facility] Last Admin: 10/02/19 08:10 Dose: 30 unit Documented by: Iron Carb/Multivit/[place]/Folic Acid (Multivitamin W/Minerals) 1 tab PO DAILY [facility] Last Admin: 10/03/19 09:17 Dose: Not Given Documented by: Levothyroxine Sodium (Synthroid) 100 mcg PO ACB [facility] Last Admin: 10/03/19 09:09 Dose: 100 mcg Documented by: Levothyroxine Sodium (Synthroid) 75 mcg PO QAMAC [facility] Last Admin: 10/03/19 09:09 Dose: 75 mcg Documented by: Lidocaine (Lidoderm) 1 patch TOPICAL DAILY@1000 [facility] Last Admin: 10/02/19 13:57 Dose: 1 patch Documented by: Lorazepam (Ativan) 0.5 mg PO Q6HP PRN PRN Reason: Anxiety Magnesium Hydroxide (Milk Of Magnesia) 30 ml PO HSP PRN PRN Reason: Constipation Melatonin (Melatonin 3mg Tablet) 3 mg PO HSP PRN PRN Reason: Insomnia Last Admin: 10/02/19 21:33 Dose: 3 mg Documented by: Ondansetron HCl (Zofran Odt) 4 mg SL Q4-6HP PRN; Protocol PRN Reason: Nausea And Vomiting Ondansetron HCl (Zofran) 4 mg IV Q4-6HP PRN; Protocol PRN Reason: Nausea And Vomiting Last Admin: 10/01/19 08:19 Dose: 4 mg Documented by: Oxybutynin Chloride (Ditropan) 5 mg PO BID [facility] Last Admin: 10/03/19 09:08 Dose: 5 mg Documented by: Polyethylene Glycol (Miralax) 17 gm PO DAILYP PRN PRN Reason: Constipation Last Admin: 10/02/19 21:32 Dose: 17 gm Documented by: Potassium Chloride (Klor-Con) 40 meq PO DAILYP PRN PRN Reason: K+ < 3.5 Senna/Docusate Sodium (Senna Plus Tablet) 1 tab PO HS [facility] Last Admin: 10/02/19 21:33 Dose: 1 tab Documented by: Sodium Chloride (Saline Flush) 10 ml IV Q8 [facility] Last Admin: 10/03/19 04:25 Dose: Not Given Documented by: Thiamine HCl (Vitamin B1) 100 mg PO DAILY [facility] Last Admin: 10/03/19 09:18 Dose: Not Given Documented by: Tramadol HCl (Ultram) 50 mg PO Q4-6HP PRN; Protocol PRN Reason: Per Pain Protocol Zolpidem Tartrate (Ambien) 5 mg PO HSP PRN PRN Reason: Insomnia Last Admin: 10/02/19 21:33 Dose: 5 mg Documented by: Medical - PN: A/P - Time Spent With Patient Total time spent is greater than 50% in coordination of care (as documented) at patient's floor/unit and/or counseling patient: 25 - 35 minutes (1) 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 * Intractable bone pain secondary to metastatic cancer-responded well to dexamethasone/bisphosphonate/capsaicin and local lidocaine. Continue opioids as tolerated. * Left lower lobe pneumonia-clinically improved on antibiotic coverage/aggressive pulmonary toilet * Anemia of chronic kidney disease, hemoglobin 8.9 * History of hypothyroidism continue thyroxine * Morbid obesity continue dietary intervention/directed therapies. * DM type II continue prandial insulin/CC diet * History of CKD stage IIIb-creatinine 1.5. * Neuropathy continue gabapentin * Hypertension continue losartan * Anxiety disorder on home dose lorazepam * Full code * Prophylaxis heparin Plan * Continue antibiotic coverage * Await CT-guided rib biopsy * Pre-existing medical condition management on home medications * Discharge planning likely SNF with outpatient follow-up with oncology post biopsy * Continue PT OT/nutrition support Current Visit: Yes Medical - PN: Qual - VTE Deep Vein Thrombosis/Pulmonary Embolism Present on Admission: No
[2019-10-03] MEDS: INSULIN GLARGINE, HUMAN 1 UNIT/0.01 ML SQ SCH ×2 (12:49→21:57)
[2019-10-03] MEDS ORDERED: LIDOCAINE 1% 20 ML VIAL SQ ONE (13:14)
[2019-10-03] MEDS ORDERED: MIDAZOLAM 2 MG/2 ML VIAL IV ONE (13:20)
[2019-10-03] MEDS ORDERED: fentaNYL 100 MCG/2 ML VIAL IV ONE (13:20)
--- NOTE | 2019-10-03 13:25 | Cat Scan Report ---
CLINICAL INFORMATION: Cancer of the vulva. Multiple bone lesions consistent with metastases TECHNIQUE: Informed consent was obtained. Discussed the procedure as well as potential risks and complications including risk of infection and bleeding. Patient was scanned in prone position. A small lytic lesion in the left iliac bone is localized. 15 cm guiding needle was placed. 18-gauge core biopsies were obtained. Patient received 0.5 mg Versed and 25 mcg fentanyl during this procedure. No immediate complications IMPRESSION: CT guided core needle biopsy of a lytic lesion in the left iliac bone Interpreted and Authenticated by: Joe Balderrama 10/03/19
[2019-10-03] MEDS: HYDROmorphone 2 MG/ML VIAL IV PRN ×2 (13:42→22:38)
[2019-10-03] MEDS: POLYETHYLENE GLYCOL 3350 17 GM PACKET PO PRN (16:13)
[2019-10-03] MEDS: LIDOCAINE PATCH TOPICAL SCH (17:16)
[2019-10-03 18:30] LABS: Albumin PEP 2.73 gm/dl (3.1-4.7); Albumin/Globulin Ratio PEP 0.7 (0.9-1.7); Alpha-1-Globulins 0.4 gm/dl (0.1-0.5); Alpha-2-Globulins 1.43 gm/dL (0.4-1.2); Beta Globulins 1.04 gm/dL (0.6-1.2); Gamma Globulins 0.8 gm/dL (0.5-1.7); Globulin PEP 3.7 gm/dl (2.4-3.6)
[2019-10-03] MEDS: SENNOSIDES/DOCUSATE SODIUM 1 TAB TABLET PO SCH (21:48)
[2019-10-03] MEDS: MELATONIN 3 MG TABLET PO PRN (22:01)
[2019-10-03] MEDS: ZOLPIDEM 5 MG TABLET PO PRN (22:01)
[2019-10-04] MEDS: HYDROcodone/APAP 5/325MG TABLET PO PRN ×2 (02:02→06:09)
[2019-10-04] MEDS: 0.9 % SODIUM CHLORIDE 10 ML SYRINGE IV SCH (04:36)
[2019-10-04] MEDS: HYDROmorphone 2 MG/ML VIAL IV PRN (04:36)
[2019-10-04 07:42] LABS: Hematocrit 28.3 % (34.1-44.9); Mean Cell Volume 96.6 fL (80.0-100.0); Mean Corpuscular HGB Conc 31.8 g/dL (31.0-36.0); Mean Platelet Volume 10.2 fL (7.4-10.4); Platelet Count 353 K/mcL (140-440); RBC 2.93 M/mcL (3.59-5.38); Red Cell Distribution Width 12.2 % (11.5-14.5); WBC 8.3 K/mcL (4.50-11.00)
[2019-10-04 08:21] LABS: Band Neutrophils % 9 % (0-10); Lymphocytes % 3 % (15-49); Monocytes % (Manual) 6 % (1-12); Platelet Estimate NORMAL (NORMAL); RBC Morphology NORMAL (NORMAL); Segmented Neutrophils % 82 % (38-78)
[2019-10-04 08:30] LABS: ALT/SGPT 7 U/l (0-40); AST/SGOT 12 U/l (0-37); Albumin 2.9 gm/dL (3.2-5.2); Albumin/Globulin Ratio 0.8 (1.0-2.3); Alkaline Phosphatase 100 U/L (39-117); Bilirubin,Direct < 0.2 mg/dL (0.0-0.3); Bilirubin,Total < 0.2 mg/dL (0.0-1.0); Blood Urea Nitrogen 19 mg/dl (8-23); Calcium 8.7 mg/dl (8.6-10.4); Carbon Dioxide 21 mmol/L (22-30); Chloride 102 mmol/L (96-108); Globulin 3.5 gm/dL (2.2-3.7); Glomerular Filtration Rate 38; Glucose 117 mg/dL (70-105); Lactate Dehydrogenase 228 U/L (94-250); Phosphorous 4.3 mg/dL (2.7-4.5); Triglycerides 146 mg/dl (<150); Uric Acid 6.5 mg/dL (2.5-8.0)
[2019-10-04] MEDS: LEVOTHYROXINE 100 MCG TABLET PO SCH (09:13)
[2019-10-04] MEDS: CARVEDILOL 6.25 MG TABLET PO SCH (09:13)
[2019-10-04] MEDS: OXYBUTYNIN CHLORIDE 5 MG TABLET PO SCH (09:13)
[2019-10-04] MEDS: DOCUSATE SODIUM 100 MG CAPSULE PO SCH (09:14)
[2019-10-04] MEDS: LEVOTHYROXINE 75 MCG TABLET PO SCH (09:14)
[2019-10-04] MEDS: fentaNYL 25 MCG PATCH TOPICAL SCH (09:14)
[2019-10-04] MEDS: cefTRIAXone 2 GM in DEXTROSE 5% IN WATER 50 ML IV SCH (09:14)
[2019-10-04] MEDS: CALCIUM CARBONATE 1,250 MG/5 ML ORAL.SUSP PO SCH (09:14)
[2019-10-04] MEDS: INSULIN GLARGINE, HUMAN 1 UNIT/0.01 ML SQ SCH (09:14)
[2019-10-04] MEDS: HEPARIN 5,000 UNIT/ML VIAL SQ SCH (09:15)
--- NOTE | 2019-10-04 09:41 | Discharge Summary ---
Medical - DS: Prov Patient information: Note initiated : 10/04/19 at 9:37 am Service Date, if different from initiated Date: [] Patient: Kiana Benitez 68 y/o F admitted on 09/30/19 for Right Sided Pain. Chief Complaint: [] Date of admission: 09/30/19 14:25 Discharge date: 10/04/19 Consults: 09/30/19 Consult to Physician [CONS] Stat Comment: Consulting Provider: Reinaldo Willis Reason For Exam: Physician to Consult 10/03/19 10:47 Consult to Physician [CONS] Routine Comment: Consulting Provider: [facility] Cristina Reason For Exam: Physician to Consult Medical - DS: Meds - Discharge Medications Prescriptions: Cefdinir 300 mg PO BID #6 cap Prescription Printed fentaNYL [Duragesic] 25 mcg TOPICAL Q72H #2 patch Prescription Printed Lidocaine [Lidoderm] 1 patch TOPICAL DAILY@1000 #14 patch Prescription Printed HYDROcodone/APAP 5/325MG [[place] 5-325Mg] 1 tab PO Q4HP PRN #30 tab PRN Reason: Per Pain Protocol Prescription Printed Active and Home Medications: Home Medications Gabapentin [Neurontin] 300 mg PO DAILY PRN 10/06/18 [History Confirmed 09/30/19 Last Taken Unknown] LORazepam [Ativan] 0.5 mg PO Q6HP PRN 10/06/18 [History Confirmed 09/30/19 Last Taken Unknown] Levothyroxine Sodium [Levoxyl] 175 mcg PO DAILY 10/06/18 [History Confirmed 09/30/19 Last Taken Unknown] Carvedilol [Coreg] 6.25 mg PO BIDCC 09/30/19 [History Confirmed 09/30/19 Last Taken Unknown] Cyanocobalamin [Vitamin B12] 1,000 mcg IM MONTHLY 09/30/19 [History Confirmed 09/30/19 Last Taken 09/03/19] Ferrous Gluconate [Fergon] 324 mg PO DAILY 09/30/19 [History Confirmed 09/30/19 Last Taken Unknown] Insulin Glargine, Human [Lantus] 25 unit SQ HS 09/30/19 [History Confirmed 09/30/19 Last Taken Unknown] Insulin Glargine, Human [Lantus] 30 unit SQ DAILY 09/30/19 [History Confirmed 09/30/19 Last Taken Unknown] Oxybutynin Chloride 5 mg PO BID 09/30/19 [History Confirmed 09/30/19 Last Taken Unknown] Zolpidem [Ambien] 5 - 10 mg PO HSP PRN 09/30/19 [History Confirmed 09/30/19 Last Taken Unknown] Capsaicin [Zostrix] 1 dose TOPICAL QIDP PRN cream.top 10/04/19 [Rx Last Taken Unknown] Cefdinir 300 mg PO BID #6 cap 10/04/19 [Rx Last Taken Unknown] HYDROcodone/APAP 5/325MG [[place] 5-325Mg] 1 tab PO Q4HP PRN #30 tab 10/04/19 [Rx Last Taken Unknown] Lidocaine [Lidoderm] 1 patch TOPICAL DAILY@1000 #14 patch 10/04/19 [Rx Last Taken Unknown] Polyethylene Glycol 3350 [Miralax] 17 gm PO DAILYP PRN packet 10/04/19 [Rx Last Taken Unknown] fentaNYL [Duragesic] 25 mcg TOPICAL Q72H #2 patch 10/04/19 [Rx Last Taken Unknown] Medical - DS: Hosp Hospital Course: Discharge diagnosis * Malignant neoplasm with rib metastasis/lytic lesion from unknown primary- status post CT-guided biopsy. Patient will follow with oncology in 7 to 10 days with biopsy results for further management and evaluation. * Intractable bone pain secondary to metastatic cancer-responded well to initial treatment on dexamethasone/bisphosphonate/capsaicin and local lidocaine. Continue opioids as indicated. Discharging on capsaicin/lidocaine/hydrocodone and fentanyl patch. * Left lower lobe pneumonia-clinically improved on antibiotic covera ge/aggressive pulmonary toilet. Continue additional 3 days antibiotic coverage * Anemia of chronic kidney disease, hemoglobin 9 * History of hypothyroidism continue thyroxine * Morbid obesity continue dietary intervention/directed therapies. * DM type II continue prandial insulin/CC diet * History of CKD stage IIIb-creatinine at baseline 1.4 * Neuropathy continue gabapentin * Hypertension continue losartan * Anxiety disorder on home dose lorazepam Brief hospital course Ms. Benitez is a 68 year old F with a history of vulvar cancer had 2 recent excision 3 months ago and the last one 3 weeks ago. Patient started experiencing pleuritic left-sided chest pain over the last 4 weeks and has had multiple ER visits and was diagnosed with pleurisy. However her symptoms have continued to get worse making it more difficult to breathe and what was initially a 4 out of 10 is now become 5-8 out of 10 despite being on medications. There is no associated radiation but every attempt to take a deep breath, cough or move makes it worse. She was also seen at PCP office. She recently had a CT which showed multiple lytic lesions involving the ribs. A final read of the CT is currently being obtained. Patient was evaluated today in the ER initial work-up was consistent with left basilar infiltrate along with left pleural effusion which has been worsening from the prior imaging. Also pain is intractable and clearly have failed outpatient attempts at treatment. ER physician discussed case with cancer specialist Dr. Tadeo who recommended obtaining biopsy and follow-up as outpatient After initial evaluation and treatment hospitalist service was consulted for admission At the time of evaluation patient is fairly anxious. She is unable to talk in full sentences due to pain. She is under the effect of Dilaudid and frequently dozes off. She however was able to hold a conversation and provide review of systems. She denies recent fall. She lives with her and her son in [facility]. She denies weight loss, bloody stool, vaginal bleeding, swallowing difficulty. Based on information I have at this point time I discussed the plan of admission for intensive pain management for metastatic lytic lesion along with obtaining a biopsy for further evaluation of tumor and blood work. We will initiate treatment for pneumonia seen on imaging. 09/30-patient clinically worsening with intractable pain and unable to be comfortable. Started on fentanyl patch/capsaicin/lidocaine. Start bisphosphonate and 4 mg dexamethasone. High likelihood of hypostatic pneumonia due to significant pain related hypoventilation. Continue antibiotic coverage. Renal function stable currently creatinine 1.5. White count down to 9.2. Hemoglobin 8.8. Repeat chest imaging in 24 hours. 10/01-patient much improved post bisphosphonate/dexamethasone and lidocaine patches. Able to talk in full sentences. Pain 4 out of 10. Creatinine 1.5. T-max 98.2. No other concerns expressed by nursing staff. Tolerating diet. Continue physical therapies. Anticipate discharge following biopsy in 48 hours. 10/02-patient due for bone biopsy at 1 PM. Pain much improved. White count 7.6, hemoglobin 8.4 creatinine 1.4, pro electrophoresis increased kappa lambda chain with increased ESR/high normal calcium suspicious for paraproteinemia. Continue PT OT. Anticipate discharge in 24 hours with outpatient oncology follow-up. 10/03-patient doing well. Pain much improved. No overnight fever chills. Continue lidocaine patch/fentanyl/as needed opioids for pain management. will follow-up with oncology in 10 days for further evaluation/treatment of neoplasm with rib metastasis. CT-guided biopsy results awaited. Continue PT OT at [facility]. Discharge diagnosis: . - Time Spent with Patient Total time spent providing and/or coordinating discharge services: Greater than 30 minutes Medical - DS: Exam - Constitutional Vitals: Vital Signs Temp Pulse Resp BP Pulse Ox 10/04/19 07:33 98.0 F 75 16 112/60 92 10/04/19 04:18 98.3 F 76 16 127/65 94 10/03/19 22:49 98.4 F 74 12 149/71 94 10/03/19 19:04 98.7 F 78 12 130/65 96 10/03/19 16:00 98.4 F 83 18 126/61 93 10/03/19 12:00 98.2 F 83 18 121/65 94 Intake and Output 10/03/19 10/04/19 10/04/19 21:59 05:59 13:59 Intake Total 440 1000 Output Total 725 350 200 Balance -285 650 -200 Intake: Oral 440 1000 Output: Void Amount 725 350 200 Other: Meal Dinner Percent of Meal Consumed 75% Feeding Ability Independent Urine Appearance Clear Urine Color Bright Yellow Urine Odor Normal Weight 254 lb 3.2 oz Medical - DS: Data Labs on day of discharge: Labs from last 24 hours 10/04/19 10/04/19 10/03/19 07:08 07:08 08:43 WBC 8.3 RBC 2.93 L Hgb 9.0 L Hct 28.3 L MCV 96.6 MCH 30.7 MCHC 31.8 RDW 12.2 Plt Count 353 MPV 10.2 Total Counted 100 Seg Neutrophils % 82 H Band Neutrophils % 9 Lymphocytes % 3 L Monocytes % (Manual) 6 Platelet Estimate Normal RBC Morphology Normal PT 13.3 INR 1.0 Sodium 135 Potassium 4.3 Chloride 102 Carbon Dioxide 21 L Anion Gap 12.0 BUN 19 Creatinine 1.4 H GFR Calculation 38 Glucose 117 H Uric Acid 6.5 Calcium 8.7 Phosphorus 4.3 Magnesium 1.9 Total Bilirubin < 0.2 Direct Bilirubin < 0.2 GGT 12 AST 12 ALT 7 Alkaline Phosphatase 100 Lactate Dehydrogenase 228 Total Protein 6.4 Albumin 2.9 L Albumin (PEP) Globulin 3.5 Globulin (PEP) Albumin/Globulin Ratio 0.8 L Albumin/Globulin (PEP) Hfpjf-1-Lycxkmumh Cecsy-4-Vkegfldug Beta Globulins Gamma Globulins PEP Interpretation Triglycerides 146 09/30/19 09:00 WBC RBC Hgb Hct MCV MCH MCHC RDW Plt Count MPV Total Counted Seg Neutrophils % Band Neutrophils % Lymphocytes % Monocytes % (Manual) Platelet Estimate RBC Morphology PT INR Sodium Potassium Chloride Carbon Dioxide Anion Gap BUN Creatinine GFR Calculation Glucose Uric Acid Calcium Phosphorus Magnesium Total Bilirubin Direct Bilirubin GGT AST ALT Alkaline Phosphatase Lactate Dehydrogenase Total Protein Albumin Albumin (PEP) 2.73 L Globulin Globulin (PEP) 3.7 H Albumin/Globulin Ratio Albumin/Globulin (PEP) 0.7 L Gfria-9-Gnuutywcf 0.40 Yzktx-7-Doamipkim 1.43 H Beta Globulins 1.04 Gamma Globulins 0.80 PEP Interpretation Triglycerides Medical - DS: A/P - Patient/Caregiver Discharge Instructions Activity: as per physical therapy, increase activity as tolerated Diet: Renal/Consistent Carbs Additional Instructions: Follow-up PCP in 5 days With oncology at [place] in 10 days with biopsy results Ambulance transfer to senior care home I recommend [facility] physician to check CBC BMP UA as a posthospital follow-up in 1 week. Antibiotics for additional 3 days Continue aggressive bowel regimen to prevent constipation Continue fall precautions Continue aggressive PT OT evaluation and treatment at [facility]. evnv and treatment if indicated High protein calorie supplements All meals on chair sitting upright at 90 degrees to prevent aspiration Return to ER if worsening fever chills shortness of breath, diarrhea, bleeding Review risk and side effect profile of medications including antibiotics. Side effect may include mild to severe reaction including rash, diarrhea, cdiff and even which can be prevented by close follow-up with PCP and monitoring for side effects Continue diet and activity as advised Discussed importance of medication adherence Please review medication list with patient prior to discharge Please schedule follow-up with PCP/Providers prior to discharge and provide printouts Prescriptions: Cefdinir 300 mg PO BID #6 cap Prescription Printed fentaNYL [Duragesic] 25 mcg TOPICAL Q72H #2 patch Prescription Printed Lidocaine [Lidoderm] 1 patch TOPICAL DAILY@1000 #14 patch Prescription Printed HYDROcodone/APAP 5/325MG [[place] 5-325Mg] 1 tab PO Q4HP PRN #30 tab PRN Reason: Per Pain Protocol Prescription Printed - Problem Maintenance (1) 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
[2019-10-04] MEDS: FOLIC ACID 1 MG TABLET PO SCH (10:43)
[2019-10-04] MEDS: MULTIVIT,THER IRON,CA,FA & MIN 1 TABLET PO SCH (10:43)
[2019-10-04] MEDS: THIAMINE 100 MG TABLET PO SCH (10:44)
[2019-10-04] MEDS: LIDOCAINE PATCH TOPICAL SCH (10:44)
--- NOTE | 2019-10-05 09:53 | Surgical Pathology Report ---
HISTOLOGY SPECIMEN MICROSCOPIC DIAGNOSIS BONE, PELVIC LESION, BIOPSY: -- INVASIVE POORLY DIFFERENTIATED SQUAMOUS CELL CARCINOMA, SEE COMMENT. 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 The pelvic bone biopsy shows poorly differentiated carcinoma with morphology and immunoprofile (positive for CK5/6, p63) consistent with squamous cell carcinoma. Clinical and radiologic correlation are recommended. MICROSCOPIC DESCRIPTION Immunohistochemical studies are performed (block A1): Cells of interest: Tumor cells. CK5/6, p63: Positive. CK7, CK20: Negative. TTF-1, Napsin-A: Negative. WT-1, PAX-8: Negative. GATA3: Negative. CDX2: Negative. (RLF:adj) Interpretation: Invasive poorly differentiated squamous cell carcinoma. (RLF:adj) Some of the tests reported here may not have been cleared or approved by the [place] Food and Drug Administration (FDA). However, the FDA has determined that such clearance or approval is not necessary. Pursuant to the requirements of CLIA, this laboratory has established and verified the accuracy and precision of all tests, and additional information about these tests is available upon request. All technical controls are adequate. CLINICAL HISTORY Right sided pain. GROSS DESCRIPTION Received in formalin designated as pelvic bone lesion per requisition, are six bradley-brown cores of tissue from 0.2 to 0.9 cm in length and up to 0.1 cm in diameter. Entirely submitted - two cassettes. (SCB:sln) Electronically Signed by: Marilyn Stewart M.D.
== END 2019-10-04 11:10 | DRG 478 ==
LOC: ED 08:19 → MEDSUR 14:25
PROVIDERS: ADMIT Internal Medicine; ATTEND Internal Medicine